=== PATIENT | male | born 1945 | race Caucasian/White ===

== ENCOUNTER 2018-09-20 18:58 | Emergency (ER) | payer MEDICARE ==
[2018-09-20 19:21] VITALS: BP 131/69; PULSE 75; RESP 18; TEMP 98.2; O2SAT 96
[2018-09-20 20:46] LABS: URINE BILIRUBIN NEGATIVE (NEGATIVE); URINE BLOOD SMALL (NEGATIVE); URINE CLARITY SLIGHTY-CLOUDY (Clear); URINE COLOR YELLOW (YELLOW); URINE GLUCOSE (UA) NEG (NEGATIVE); URINE LEUKOCYTE ESTERASE LARGE Leu/uL (Negative); URINE PROTEIN NEGATIVE (NEGATIVE); URINE UROBILINOGEN 0.2-1.0 mg/dL (0.2-1.0)
[2018-09-20] MEDS ORDERED: levoFLOXacin 750 MG TAB PO STA (20:54)
--- NOTE | 2018-09-20 20:54 | ED PDOC ---
HPI: Male Pain Time Seen by Provider: 09/20/18 19:06 Chief Complaint (Nursing): Male Genitourinary Chief Complaint (Provider): Dysuria History Per: Patient History/Exam Limitations: no limitations Onset/Duration Of Symptoms: Days Current Symptoms Are (Timing): Still Present Associated Symptoms: denies: Fever, Vomiting, Back Pain Additional Complaint(s): 73 year old male with history of a pacemaker with defibrillator and HTN presents to the ED for an evaluation of pain when urinating. Patient is concerned because two years ago, he had prostate problems and enlargement. Otherwise, he denies prostate irritation, abdominal pain, back pain, fever, cough or vomit. Past Medical History Reviewed: Historical Data Vital Signs: Last Vital Signs Temp 98.2 F 09/20/18 19:18 Pulse 75 09/20/18 19:18 Resp 18 09/20/18 19:18 BP 131/69 09/20/18 19:18 Pulse Ox 96 09/20/18 19:18 - Medical History PMH: Benign Prostatic Hyperplasia, HTN Denies: Chronic Kidney Disease - Surgical History Surgical History: Pacemaker - Family History Family History: States: Unknown Family Hx - Home Medications Home Medications: Ambulatory Orders Medication Instructions Recorded Levofloxacin [Levaquin] 750 mg PO DAILY 10 Days #5 tablet 09/20/18 - Allergies Allergies/Adverse Reactions: Allergies Allergy/AdvReac Type Severity Reaction Status Date / Time No Known Allergies Allergy Verified 09/20/18 19:18 Review of Systems ROS Statement: Except As Marked, All Systems Reviewed And Found Negative Constitutional: Negative for: Fever Respiratory: Negative for: Cough Gastrointestinal: Negative for: Vomiting, Abdominal Pain Genitourinary Male: Positive for: Dysuria Musculoskeletal: Negative for: Back Pain Physical Exam - Reviewed Nursing Documentation Reviewed: Yes Vital Signs Reviewed: Yes - Physical Exam Appears: Positive for: Well, Non-toxic, No Acute Distress Head Exam: Positive for: ATRAUMATIC, NORMAL INSPECTION, NORMOCEPHALIC Skin: Positive for: Normal Color, Warm, Dry. Negative for: Rash Eye Exam: Positive for: EOMI, Normal appearance, PERRL ENT: Positive for: Normal ENT Inspection Neck: Positive for: Normal, Painless ROM, Supple. Negative for: Decreased ROM Cardiovascular/Chest: Positive for: Regular Rate, Rhythm. Negative for: Murmur Respiratory: Positive for: Normal Breath Sounds. Negative for: Respiratory Distress Gastrointestinal/Abdominal: Positive for: Normal Exam, Soft. Negative for: Tenderness Back: Positive for: Normal Inspection Extremity: Positive for: Normal ROM. Negative for: Tenderness, Pedal Edema, Deformity Neurological/Psych: Positive for: Awake, Alert, Normal Tone, Oriented (x3) - ECG O2 Sat by Pulse Oximetry: 96 (RA) Pulse Ox Interpretation: Normal Medical Decision Making Medical Decision Making: Time: 19:44 Impression: 73 year old male who is well appearing with dysuria. He has no complain of prostate irritation and rectal exam was deffered at this time given that there is no concern for prostatitis. Will treat patient for UTI and he understands importance to follow up with Dr. Velarde. Plan: --Urine C&S --Urinalysis Upon provider reevaluation patient is feeling better, is medically stable, and requires no further treatment in the ED at this time. Patient will be discharged. Counseling was provided and all questions were answered regarding diagnosis and need for follow up with Dr. Velarde. There is agreement to discharge plan. Return if symptoms persist or worsen. Scribe Attestation: Documented by Hao Goncalves, acting as a scribe for Sebastián Camacho MD Provider Scribe Attestation: All medical record entries made by the Scribe were at my direction and personally dictated by me. I have reviewed the chart and agree that the record accurately reflects my personal performance of the history, physical exam, medical decision making, and the department course for this patient. I have also personally directed, reviewed, and agree with the discharge instructions and disposition. Disposition - Clinical Impression Clinical Impression: Urinary tract infection - Patient ED Disposition Is Patient to be Admitted: No - Disposition Referrals: Jad Velarde MD [Staff Provider] - Disposition: Routine/Home Disposition Time: 20:30 Condition: STABLE Additional Instructions: Please followup with Dr. Velarde in 2 - 3 days. Prescriptions: Levofloxacin [Levaquin] 750 mg PO DAILY 10 Days #5 tablet Instructions: Urinary Tract Infections in Adults Forms: [facility] (Wolof) Print Language: [place]
== END 2018-09-20 21:25 | disposition home or self-care (01) ==
LOC: H.ER 18:58
DX: N39.0 Urinary tract infection, site not specified (principal)